=== PATIENT | male | born 1955 | race Two or more races ===

== ENCOUNTER 2019-07-03 08:29 | Outpatient (CLI) | payer OTHER | END 2019-07-03 08:39 | disposition home or self-care (01) | LOC: NUCLEAR 08:29 | DX: C61 Malignant neoplasm of prostate (principal) | CPT/HCPCS: 78816; A9552 ==

== ENCOUNTER 2020-12-16 08:32 | Outpatient (CLI) | payer OTHER | END 2020-12-16 08:59 | disposition home or self-care (01) | LOC: NUCLEAR 08:32 | PROVIDERS: ATTEND Internal Medicine Hematology & Oncology | DX: C61 Malignant neoplasm of prostate (principal) | CPT/HCPCS: 78816; A9552 ==